=== PATIENT | male | born 1990 | race Caucasian/White ===

== ENCOUNTER 2019-06-21 08:08 | Day surgery (SDC) | payer BC ==
[2019-06-19 09:17] VITALS: BMI 19.9
[~2019-06-21 08:08] MED LIST: LIDOCAINE 1% 20 ML VIAL (10MG/ML) FOR IV START INTRADERMA PRN
[2019-06-21 08:46] VITALS: TEMP 98.6
[2019-06-21] MEDS: LACTATED RINGERS 1,000 ML IV SCH ×2 (08:51→08:53)
[2019-06-21] MEDS ORDERED: PROPOFOL 10 MG/ML 20 ML VIAL IV ONE (09:40)
[2019-06-21] MEDS ORDERED: GLYCOPYRROLATE 0.2 MG/ML 2 ML VIAL ONE (09:40)
[2019-06-21] MEDS ORDERED: LIDOCAINE 1% INJ 10MG/ML (20 ML MDV) ONE (09:40)
--- NOTE | 2019-06-21 09:46 | P.GSHP ---
History of Present Illness H&P Date: 06/21/19 Chief Complaint: GERD, GI bleed Cyst 20-year-old male who presents today for EGD and colonoscopy. He's had issues with GERD and rectal bleeding. Past Medical History Past Medical History: Asthma, GERD/Reflux, Osteoarthritis (OA) Additional Past Medical History / Comment(s): MIGRAINE HEADACHE, ABDOMINAL PAIN, OCCASIONAL BLOOD IN STOOL, History of Any Multi-Drug Resistant Organisms: None Reported Past Surgical History: Adenoidectomy, Orthopedic Surgery, Tonsillectomy Additional Past Surgical History / Comment(s): LEFT FOOT SURGERY Past Anesthesia/Blood Transfusion Reactions: Motion Sickness Smoking Status: Never smoker - Past Family History Mother Family Medical History: No Reported History Medications and Allergies Home Medications Medication Instructions Recorded Confirmed Type Ibuprofen [Advil] 200 mg PO DAILY PRN 06/19/19 06/21/19 History Omeprazole Magnesium [PriLOSEC OTC] 20 mg PO DAILY PRN 06/19/19 06/21/19 History Allergies Allergy/AdvReac Type Severity Reaction Status Date / Time No Known Allergies Allergy Verified 06/21/19 08:44 Surgical - Exam Vital Signs Temp Pulse Resp BP Pulse Ox 98.6 F 67 17 128/62 98 06/21/19 08:45 06/21/19 08:45 06/21/19 08:45 06/21/19 08:45 06/21/19 08:45 - General well developed, well nourished, no distress - Eyes PERRL - ENT normal pinna - Neck no masses - Respiratory normal expansion - Cardiovascular Rhythm: regular - Abdomen Abdomen: soft, non tender Assessment and Plan Assessment: GERD, GI bleed. We'll perform EGD and colonoscopy.
--- NOTE | 2019-06-21 10:06 | P.OP ---
Date of Procedure: 06/21/19 Preoperative Diagnosis: GI bleed GERD Postoperative Diagnosis: Antral gastritis Normal colon Procedure(s) Performed: EGD Colonoscopy Anesthesia: MAC Surgeon: Bacilio Melendez Pathology: other (Antrum) Condition: stable Disposition: PACU Description of Procedure: No PROCEDURE: The patient was placed on the endoscopy table in the lateral position. Digital rectal examination was performed which revealed no abnormalities. The prostate was symmetrical without nodules. Flexible colonoscope was then placed in the patient's anus and passed throughout the entire colon. The ileocecal valve was visualized. The cecum, ascending, transverse, descending and sigmoid colon were normal. The rectum was normal as well. There were no masses, polyps or diverticula noted in the entire colon. Next, the gastroscope placed oropharynx and passed in the esophagus and stomach. Scope was then placed through the pylorus. The first and second portion of the duodenum. Normal. Scope summer back the antrum this. Mildly inflamed. A biopsy was performed. The scope was then retroflexed and the remainder of the stomach appeared normal. There is no significant hiatal hernia. The GE junction was at 40 cm. The distal esophagus. Normal. Proximal esophagus appeared normal. Scope was withdrawn for patient.
[2019-06-21 10:17] VITALS: RESP 16
[2019-06-21 10:42] VITALS: BP 102/67; PULSE 75
== END 2019-06-21 10:53 | disposition home or self-care (01) ==
LOC: ORWHC2ENDO 08:08
PROVIDERS: ATTEND Surgery
DX: K29.50 Unspecified chronic gastritis without bleeding (principal); K21.9 Gastro-esophageal reflux disease without esophagitis; K62.5 Hemorrhage of anus and rectum; J45.909 Unspecified asthma, uncomplicated; M19.90 Unspecified osteoarthritis, unspecified site; G43.909 Migraine, unspecified, not intractable, without status migrainosus; Z98.890 Other specified postprocedural states
CPT/HCPCS: 88305; 45378; 43239; J2001; J2704

== ENCOUNTER 2020-03-31 07:09 | Emergency (ER) | payer BC, OTHER ==
[2020-03-31 07:23] VITALS: RESP 18
--- NOTE | 2020-03-31 07:46 | ED ---
Lower Extremity Injury HPI - General Chief Complaint: Extremity Injury, Lower Stated Complaint: [facility] - L Knee Injury Time Seen by Provider: 03/31/20 07:30 Source: patient, RN notes reviewed Mode of arrival: ambulatory Limitations: no limitations - History of Present Illness Initial Comments: This is a 29-year-old male with a benign past medical history states he no abdominal work onto a floor and started developing pain in his left knee. He states it persisted he has some swelling over the patellar region. He does not bleeding to anything he didn't hear any pops or snaps. his complains now of pain over the patella and some swelling. no other complaints or modifying factors. He states the pain is about 2/10 severity while at rest and 3/10 when he tries to move it. He feels better extended and flexed the pain is described as both sharp and dull. Some radiation cephalad. MD Complaint: knee injury - Related Data Home Medications Medication Instructions Recorded Confirmed Ibuprofen [Advil] 200 mg PO DAILY PRN 06/19/19 06/21/19 Omeprazole Magnesium [PriLOSEC OTC] 20 mg PO DAILY PRN 06/19/19 06/21/19 Allergies Allergy/AdvReac Type Severity Reaction Status Date / Time No Known Allergies Allergy Verified 03/31/20 07:23 Review of Systems ROS Statement: Those systems with pertinent positive or pertinent negative responses have been documented in the HPI. ROS Other: All systems not noted in ROS Statement are negative. Past Medical History Past Medical History: No Reported History History of Any Multi-Drug Resistant Organisms: None Reported Past Surgical History: Orthopedic Surgery Past Psychological History: No Psychological Hx Reported Smoking Status: Never smoker Past Alcohol Use History: None Reported Past Drug Use History: None Reported General Exam - General Exam Comments Initial Comments: This is a well-developed well-nourished awake alert oriented 3 male Limitations: no limitations General appearance: alert, in no apparent distress Head exam: Present: atraumatic, normocephalic, normal inspection Eye exam: Present: normal appearance Extremities exam: Present: full ROM, tenderness, normal capillary refill, other (Some evidence of edema over the patella no evidence of subluxation no tenderness on varus or valgus stress no pain on anterior posterior stress. Proximal distal this no evidence of any injury no sensorimotor or vascular deficits) Back exam: Present: full ROM Neurological exam: Present: alert, oriented X3, CN II-XII intact Psychiatric exam: Present: normal affect, normal mood Skin exam: Present: warm, dry, intact, normal color. Absent: rash Course Vital Signs 03/31/20 07:20 Temperature 98.5 F Pulse Rate 76 Respiratory 18 Rate Blood Pressure 116/74 O2 Sat by Pulse 99 Oximetry - Reevaluation(s) Reevaluation #1: 03/31/20 08:00 Work status form filled out by me, Dr. Alcantara Medical Decision Making - Medical Decision Making I did discuss findings with the patient discharged with instructions for [id number] anti-inflammatories. Ice elevation and orthopedic follow-up with Dr. Myla fuentes or couple days until follow-up - Radiology Data Radiology results: report reviewed (I did review the imaging and report no acute findings), image reviewed Disposition Clinical Impression: Contusion of left knee Disposition: HOME SELF-CARE Condition: Good Instructions (If sedation given, give patient instructions): Knee Pain (ED), Contusion in Adults (ED) Additional Instructions: Crutches, ice, elevation, orthopedic follow-up Is patient prescribed a controlled substance at d/c from ED?: No Referrals: Conner Giron III, MD [Primary Care Provider] - 1-2 days Mitchel Lanza DO [Doctor of Osteopathic Medicine] - 1-2 days
--- NOTE | 2020-03-31 08:18 | XR ---
EXAMINATION TYPE: XR knee 4V LT DATE OF EXAM: 03/31/2020 CLINICAL HISTORY: pain TECHNIQUE: Three views of the left knee are obtained. Patellar sunrise views also obtained. COMPARISON: None. FINDINGS: There is no acute fracture/dislocation. The tri-compartment joint spaces appear within no rmal limits. There is prepatellar soft tissue edema noted. IMPRESSION: There is no acute fracture or dislocation ICD 10 NO FRACTURE, INITIAL EVALUATION
[2020-03-31 08:52] VITALS: BP 118/71; PULSE 64; TEMP 98.3
== END 2020-03-31 08:51 | disposition home or self-care (01) ==
LOC: EC 07:09
DX: S80.02XA Contusion of left knee, initial encounter (principal); Z98.890 Other specified postprocedural states; X58.XXXA Exposure to other specified factors, initial encounter; Y93.89 Activity, other specified; Y92.69 Other specified industrial and construction area as the place of occurrence of the external cause; Y99.0 Civilian activity done for income or pay
CPT/HCPCS: 99283